=== PATIENT | male | born 1940 | race Caucasian/White ===

== ENCOUNTER 2018-07-17 13:56 | Inpatient (IN) ==
[2018-07-17] MEDS ORDERED: BENZTROPINE 2 MG/2 ML AMP IV PRN (15:15)
[2018-07-17] MEDS ORDERED: LOPERAMIDE 2 MG CAPSULE PO PRN ×2 (15:15)
[2018-07-17] MEDS ORDERED: guaiFENesin 200 MG/10 ML UDCUP PO PRN (15:15)
[2018-07-17] MEDS ORDERED: ONDANSETRON 4 MG/2 ML VIAL IV PRN (15:15)
[2018-07-17] MEDS ORDERED: chlorproMAZINE INJ 50 MG in SODIUM CHLORIDE 0.9% 100 ML IV PRN (15:15)
[2018-07-17] MEDS ORDERED: MYLANTA/LIDO VISC 2:1 300 ML BOTTLE SWISH/SPIT PRN (15:15)
[2018-07-17] MEDS ORDERED: ALUMINUM/MAGNES/SIMETH MAX STR 30 ML UDCUP PO PRN (15:15)
[2018-07-17] MEDS ORDERED: chlorproMAZINE 25 MG TABLET PO PRN (15:15)
[2018-07-17] MEDS ORDERED: MAGNESIUM HYDROXIDE SUSP 30 ML UDCUP PO PRN (15:15)
[2018-07-17] MEDS ORDERED: traMADol 50 MG TABLET PO PRN (15:15)
[2018-07-17] MEDS ORDERED: TEMAZEPAM 7.5 MG CAPSULE PO PRN (15:15)
[2018-07-17] MEDS ORDERED: ALPRAZolam 0.25 MG TABLET PO PRN (15:15)
[2018-07-17] MEDS ORDERED: PROMETHAZINE INJ 25 MG in SODIUM CHLORIDE 0.9% 50 ML IV PRN (15:15)
[2018-07-17] MEDS ORDERED: chlorproMAZINE INJ 25 MG in SODIUM CHLORIDE 0.9% 100 ML IV PRN (15:15)
[2018-07-17] MEDS ORDERED: ACETAMINOPHEN 325 MG TABLET PO PRN (15:15)
[2018-07-17] MEDS ORDERED: diphenhydrAMINE CAP 25 MG CAPSULE PO PRN (15:15)
[2018-07-17] MEDS ORDERED: MYLANTA/LIDO VISC 2:1 300 ML BOTTLE SWISH/SWAL PRN (15:15)
[2018-07-17] MEDS ORDERED: LACTULOSE 20 GM/30 ML UDCUP PO PRN (15:15)
[2018-07-17] MEDS ORDERED: LIDOCAINE 1%/EPI INJ 20 ML VIAL MISC INJ ONE (17:20)
[2018-07-17] MEDS: CLINDAMYCIN INJ 600 MG in PREMIX 1 EACH IV SCH (17:29)
[2018-07-17] MEDS: SODIUM CHLORIDE 0.45% 1,000 ML IV SCH (17:29)
[2018-07-17] MEDS: MUPIROCIN 2% OINT 22 GM TUBE TOP SCH (20:40)
[2018-07-18] MEDS: CLINDAMYCIN INJ 600 MG in PREMIX 1 EACH IV SCH ×2 (01:32→11:29)
[2018-07-18 04:58] LABS: Basophils % 0.1 % (0.0-0.8); Eosinophils # 0.1 10*3/uL (0.0-0.87); Eosinophils % 0.6 % (0.00-10.9); Hematocrit 26.4 VOL% (42.0-52.0); Hemoglobin 7.9 GM/DL (14.0-18.0); Immature Granulocytes % 1.5 %; Immature Granulocytes Absolute 0.12 #; Lymphocytes # 0.9 10*3/uL (1.4-4.0); Mean Corpuscular HGB Conc 29.9 GM/DL (32-36); Mean Corpuscular Hemoglobin 29 PG (27-34); Mean Corpuscular Volume 95.3 FL (87-102); Mean Platelet Volume 10.8 FL (9.6-12.0); Monocytes # 0.6 10*3/uL (0.11-0.8); Monocytes % 6.7 % (1.7-12.7); Neutrophils # 6.5 10*3/uL (1.4-7.4); Neutrophils % 80.1 % (38.7-73.9); Platelet Count 227 T/CUMM (130-400); Red Blood Count 2.77 MC/CUMM (3.8-5.5); Red Cell Distribution Width 16.6 % (9.3-17.3); White Blood Count 8.2 T/CUMM (4-12)
[2018-07-18 05:15] LABS: Albumin 1.8 G/DL (3.4-5.0); Bilirubin,Total 0.6 MG/DL (0.2-1.0); Osmolality,Calculated 285.8 MOS/KG (273-304); Potassium 4.6 MMOL/L (3.5-5.1); Total Protein 5.2 G/DL (6.4-8.3)
[2018-07-18 05:51] LABS: INR 3.9
[2018-07-18 06:07] LABS: PT Patient Result 39.2 SECS
[2018-07-18] MEDS ORDERED: INFLUENZA VIRUS VACCINE 0.5 ML SYRINGE IM ONE (07:01)
[2018-07-18] MEDS ORDERED: MORPHINE 4 MG/1 ML VIAL IV PRN (08:41)
[2018-07-18] MEDS ORDERED: predniSONE 5 MG TABLET PO SCH (09:00)
[2018-07-18] MEDS ORDERED: TAMSULOSIN 0.4 MG CAPSULE PO SCH (09:00)
[2018-07-18] MEDS ORDERED: BRIMONIDINE 0.15% RIGHT EYE SCH (09:00)
[2018-07-18] MEDS ORDERED: BRIMONIDINE TARTRATE RIGHT EYE SCH (09:00)
[2018-07-18] MEDS: ENOXAPARIN 40 MG/0.4 ML SYRINGE SUBCUT SCH (09:42)
[2018-07-18] MEDS: METOPROLOL TARTRATE 25 MG TABLET PO SCH ×2 (09:48→20:12)
[2018-07-18] MEDS: MUPIROCIN 2% OINT 22 GM TUBE TOP SCH ×2 (09:55→20:12)
[2018-07-18] MEDS: TAMSULOSIN 0.4 MG CAPSULE PO SCH ×2 (11:22→20:12)
[2018-07-18] MEDS: predniSONE 5 MG TABLET PO SCH ×2 (11:22→20:12)
[2018-07-18] MEDS: CLINDAMYCIN INJ 900 MG in PREMIX 1 EACH IV SCH ×2 (11:23→18:19)
[2018-07-18] MEDS: SODIUM CHLORIDE 0.45% 1,000 ML IV SCH (11:24)
[2018-07-18] MEDS ORDERED: ZINC OXIDE PASTE 113 GM TUBE TOP PRN (15:04)
[2018-07-18] MEDS ORDERED: SKIN HEALING OINT (AQUAPHOR) 50 GM TUBE TOP PRN (15:48)
[2018-07-18] MEDS ORDERED: METOPROLOL TARTRATE 50 MG TABLET PO SCH (21:00)
[2018-07-19] MEDS: CLINDAMYCIN INJ 900 MG in PREMIX 1 EACH IV SCH ×3 (02:33→18:04)
[2018-07-19 06:41] LABS: Basophils % 0.1 % (0.0-0.8); Eosinophils % 0.3 % (0.00-10.9); Hematocrit 26.6 VOL% (42.0-52.0); Hemoglobin 7.9 GM/DL (14.0-18.0); Immature Granulocytes % 1.4 %; Immature Granulocytes Absolute 0.11 #; Lymphocytes # 0.9 10*3/uL (1.4-4.0); Mean Corpuscular HGB Conc 29.7 GM/DL (32-36); Mean Corpuscular Hemoglobin 29 PG (27-34); Mean Platelet Volume 10.4 FL (9.6-12.0); Monocytes # 0.5 10*3/uL (0.11-0.8); Monocytes % 6.3 % (1.7-12.7); Neutrophils # 6.4 10*3/uL (1.4-7.4); Neutrophils % 80.9 % (38.7-73.9); Platelet Count 238 T/CUMM (130-400); Red Blood Count 2.77 MC/CUMM (3.8-5.5); Red Cell Distribution Width 16.5 % (9.3-17.3); White Blood Count 7.9 T/CUMM (4-12)
[2018-07-19 07:58] LABS: PT Patient Result 72.7 SECS
[2018-07-19 08:00] LABS: INR 7.4
[2018-07-19] MEDS: TAMSULOSIN 0.4 MG CAPSULE PO SCH ×2 (08:44→21:55)
[2018-07-19] MEDS: METOPROLOL TARTRATE 25 MG TABLET PO SCH ×2 (08:44→21:54)
[2018-07-19] MEDS: predniSONE 5 MG TABLET PO SCH ×2 (08:44→21:55)
[2018-07-19] MEDS: MUPIROCIN 2% OINT 22 GM TUBE TOP SCH ×2 (08:44→21:54)
[2018-07-19] MEDS: ENOXAPARIN 40 MG/0.4 ML SYRINGE SUBCUT SCH (08:44)
[2018-07-19] MEDS ORDERED: PHYTONADIONE 10 MG/1 ML AMP SUBCUT ONE (10:55)
[2018-07-19] MEDS: SODIUM CHLORIDE 0.45% 1,000 ML IV SCH (18:05)
[2018-07-20] MEDS: CLINDAMYCIN INJ 900 MG in PREMIX 1 EACH IV SCH ×3 (03:40→18:37)
[2018-07-20 06:07] LABS: Basophils % 0.3 % (0.0-0.8); Eosinophils # 0.1 10*3/uL (0.0-0.87); Eosinophils % 0.9 % (0.00-10.9); Hematocrit 27.1 VOL% (42.0-52.0); Hemoglobin 8.3 GM/DL (14.0-18.0); Immature Granulocytes % 2.8 %; Immature Granulocytes Absolute 0.21 #; Lymphocytes # 1.2 10*3/uL (1.4-4.0); Lymphocytes % 15.4 % (21.2-54.2); Mean Corpuscular HGB Conc 30.6 GM/DL (32-36); Mean Corpuscular Hemoglobin 30 PG (27-34); Mean Corpuscular Volume 97.1 FL (87-102); Mean Platelet Volume 10.6 FL (9.6-12.0); Monocytes # 0.5 10*3/uL (0.11-0.8); Monocytes % 6.2 % (1.7-12.7); Neutrophils # 5.6 10*3/uL (1.4-7.4); Neutrophils % 74.4 % (38.7-73.9); Platelet Count 257 T/CUMM (130-400); Red Blood Count 2.79 MC/CUMM (3.8-5.5); Red Cell Distribution Width 16.5 % (9.3-17.3); White Blood Count 7.5 T/CUMM (4-12)
[2018-07-20 06:14] LABS: INR 3.4
[2018-07-20 06:26] LABS: PT Patient Result 34.6 SECS
[2018-07-20] MEDS: ENOXAPARIN 40 MG/0.4 ML SYRINGE SUBCUT SCH (09:19)
[2018-07-20] MEDS: TAMSULOSIN 0.4 MG CAPSULE PO SCH ×2 (09:19→20:56)
[2018-07-20] MEDS: predniSONE 5 MG TABLET PO SCH ×2 (09:19→20:56)
[2018-07-20] MEDS: METOPROLOL TARTRATE 25 MG TABLET PO SCH ×2 (09:19→20:56)
[2018-07-20] MEDS: MUPIROCIN 2% OINT 22 GM TUBE TOP SCH ×2 (09:20→20:58)
[2018-07-20] MEDS ORDERED: WARFARIN 2 MG TABLET PO SCH (18:00)
[2018-07-21] MEDS: SODIUM CHLORIDE 0.45% 1,000 ML IV SCH ×2 (00:36→04:45)
[2018-07-21] MEDS: CLINDAMYCIN INJ 900 MG in PREMIX 1 EACH IV SCH ×2 (03:10→18:34)
[2018-07-21 05:23] LABS: Basophils % 0.3 % (0.0-0.8); Eosinophils # 0.1 10*3/uL (0.0-0.87); Eosinophils % 1.1 % (0.00-10.9); Hematocrit 27.9 VOL% (42.0-52.0); Hemoglobin 8.3 GM/DL (14.0-18.0); Immature Granulocytes % 2.9 %; Immature Granulocytes Absolute 0.21 #; Lymphocytes # 1.4 10*3/uL (1.4-4.0); Lymphocytes % 18.8 % (21.2-54.2); Mean Corpuscular HGB Conc 29.7 GM/DL (32-36); Mean Corpuscular Hemoglobin 29 PG (27-34); Mean Corpuscular Volume 98.6 FL (87-102); Mean Platelet Volume 10.5 FL (9.6-12.0); Monocytes # 0.5 10*3/uL (0.11-0.8); Monocytes % 6.8 % (1.7-12.7); Neutrophils # 5.2 10*3/uL (1.4-7.4); Neutrophils % 70.1 % (38.7-73.9); Platelet Count 274 T/CUMM (130-400); Red Blood Count 2.83 MC/CUMM (3.8-5.5); Red Cell Distribution Width 16.7 % (9.3-17.3); White Blood Count 7.4 T/CUMM (4-12)
[2018-07-21 05:34] LABS: INR 1.5; PT Patient Result 15.7 SECS
[2018-07-21] MEDS: predniSONE 5 MG TABLET PO SCH ×2 (09:33→20:53)
[2018-07-21] MEDS: TAMSULOSIN 0.4 MG CAPSULE PO SCH ×2 (09:34→20:53)
[2018-07-21] MEDS: METOPROLOL TARTRATE 25 MG TABLET PO SCH ×2 (09:34→20:53)
[2018-07-21] MEDS: MUPIROCIN 2% OINT 22 GM TUBE TOP SCH ×2 (09:34→20:54)
[2018-07-21] MEDS: WARFARIN 3 MG TABLET PO SCH (18:33)
[2018-07-21] MEDS: CLINDAMYCIN 150 MG CAPSULE PO SCH (22:03)
[2018-07-22] MEDS: METOPROLOL TARTRATE 25 MG TABLET PO SCH ×2 (09:19→20:27)
[2018-07-22] MEDS: TAMSULOSIN 0.4 MG CAPSULE PO SCH ×2 (09:20→20:27)
[2018-07-22] MEDS: MUPIROCIN 2% OINT 22 GM TUBE TOP SCH ×2 (09:20→20:29)
[2018-07-22] MEDS: predniSONE 5 MG TABLET PO SCH ×2 (09:20→20:27)
[2018-07-22] MEDS: CLINDAMYCIN 150 MG CAPSULE PO SCH ×2 (09:29→20:27)
[2018-07-22] MEDS: WARFARIN 3 MG TABLET PO SCH (18:42)
[2018-07-23 05:06] LABS: INR 1.1; PT Patient Result 11.3 SECS; Partial Thromboplastin Time 28.5 SECS (0-40)
[2018-07-23] MEDS: predniSONE 5 MG TABLET PO SCH (09:16)
[2018-07-23] MEDS: METOPROLOL TARTRATE 25 MG TABLET PO SCH (09:16)
[2018-07-23] MEDS: TAMSULOSIN 0.4 MG CAPSULE PO SCH (09:17)
[2018-07-23] MEDS: CLINDAMYCIN 150 MG CAPSULE PO SCH (09:17)
[2018-07-23] MEDS: MUPIROCIN 2% OINT 22 GM TUBE TOP SCH (09:19)
[2018-07-23 10:05] VITALS: BP 131/75
[2018-07-23] MEDS ORDERED: INFLUENZA VIRUS VACCINE 0.5 ML SYRINGE IM ONE (10:50)
== END 2018-07-23 12:47 | disposition swing bed (61) | DRG 571 ==
LOC: N.4E 14:26
PROVIDERS: ADMIT Specialist; ATTEND Specialist

== ENCOUNTER 2019-01-22 07:32 | Inpatient (IN) ==
[2019-01-22 08:53] LABS: Apearance,Urine CLOUDY (Clear); Bilirubin,Urine Negative (Negative); Blood, Urine Small mg/dL (Negative); Glucose,Urine (UA) Negative (Negative); Ketones,Urine Negative (Negative); Mucus,Urine Occasional /LPF (Occasional); Nitrite,Urine Negative (Negative); Protein,Urine 100 MG/DL; RBC,Urine 53 /HPF (0-4); Urine Color Amber (Yellow); Urine Specific Gravity 1.013 (1.001-1.035); Urine Urobilinogen < 2.0 EU/DL (0.2-1.0); WBC,Urine 4569 /HPF (0-6)
[2019-01-22] MEDS ORDERED: SODIUM CHLORIDE 0.9% 500 ML IV STA (09:06)
[2019-01-22 09:19] LABS: Basophils % 0.1 % (0.0-0.8); Hematocrit 27.6 VOL% (42.0-52.0); Hemoglobin 8.6 GM/DL (14.0-18.0); Immature Granulocytes Absolute 0.25 #; Lymphocytes # 0.5 10*3/uL (1.4-4.0); Lymphocytes % 5.8 % (21.2-54.2); Mean Corpuscular HGB Conc 31.2 GM/DL (32-36); Mean Corpuscular Volume 91.4 FL (87-102); Monocytes % 6.4 % (1.7-12.7); NRBC # 0.03 10*3/uL; Neutrophils % 84.7 % (38.7-73.9); Platelet Count 215 T/CUMM (130-400); Red Blood Count 3.02 MC/CUMM (3.8-5.5); Red Cell Distribution Width 17.1 % (9.3-17.3); White Blood Count 8.3 T/CUMM (4-12)
[2019-01-22 09:27] LABS: Bilirubin,Total 0.7 MG/DL (0.2-1.0); Calcium 9.4 MG/DL (8.5-10.1); Osmolality,Calculated 300.2 MOS/KG (273-304); Total Protein 6.3 G/DL (6.4-8.3)
[2019-01-22 09:39] LABS: Anisocytosis 1+; Platelet Estimate Normal; Poikilocytosis 1+
[2019-01-22 09:40] LABS: Ovalocytes Few
[2019-01-22] MEDS ORDERED: LEVOFLOXACIN INJ 500 MG in PREMIX 1 EACH IV STA (11:00)
[2019-01-22] MEDS ORDERED: ONDANSETRON 4 MG/2 ML VIAL IV PRN (11:23)
[2019-01-22] MEDS ORDERED: PROMETHAZINE 25 MG/1 ML VIAL IM PRN (11:23)
[2019-01-22] MEDS ORDERED: POTASSIUM CHLORIDE 20 MEQ TABLET PO STA (11:27)
[2019-01-22] MEDS ORDERED: GLUCAGON 1 MG VIAL IM PRN (11:28)
[2019-01-22] MEDS ORDERED: DEXTROSE 50% 25 GM/50 ML VIAL IV PRN (11:28)
[2019-01-22] MEDS: LACTULOSE 20 GM/30 ML UDCUP PO SCH ×3 (12:05→21:59)
[2019-01-22] MEDS: INSULIN LISPRO 100 UNIT/ML SUBCUT SCH ×3 (12:06→22:07)
[2019-01-22] MEDS: PANTOPRAZOLE 40 MG TABLET PO SCH (12:06)
[2019-01-22 16:08] LABS: INR 3.8; PT Patient Result 41.1 SECS
[2019-01-22] MEDS: cefTRIAXone 1,000 MG in SYRINGE 1 EACH IV SCH (17:30)
[2019-01-22] MEDS: SODIUM CHLORIDE 0.9% 1,000 ML IV SCH (17:43)
[2019-01-22] MEDS: SODIUM BICARBONATE 650 MG TABLET PO SCH (21:59)
[2019-01-23] MEDS: LACTULOSE 20 GM/30 ML UDCUP PO SCH ×6 (00:19→21:44)
[2019-01-23 04:34] LABS: Hematocrit 25.8 VOL% (42.0-52.0); Hemoglobin 8.1 GM/DL (14.0-18.0); Immature Granulocytes % 2.9 %; Immature Granulocytes Absolute 0.19 #; Lymphocytes # 0.7 10*3/uL (1.4-4.0); Lymphocytes % 11.2 % (21.2-54.2); Mean Corpuscular HGB Conc 31.4 GM/DL (32-36); Mean Corpuscular Volume 91.8 FL (87-102); Mean Platelet Volume 11.3 FL (9.6-12.0); Monocytes % 7.3 % (1.7-12.7); NRBC # 0.03 10*3/uL; Neutrophils % 78.6 % (38.7-73.9); Platelet Count 204 T/CUMM (130-400); Red Blood Count 2.81 MC/CUMM (3.8-5.5); Red Cell Distribution Width 17.3 % (9.3-17.3); White Blood Count 6.6 T/CUMM (4-12)
[2019-01-23 05:31] LABS: Albumin 1.7 G/DL (3.4-5.0); Calcium 9.3 MG/DL (8.5-10.1); Osmolality,Calculated 296.5 MOS/KG (273-304); Risk Ratio 4.03; Thyroid Stimulating Hormone 0.623 uIU/ml (0.358-3.74); Total Protein 5.9 G/DL (6.4-8.3); VLDL CHOLESTEROL 32.8 MG/DL
[2019-01-23] MEDS: INSULIN LISPRO 100 UNIT/ML SUBCUT SCH ×4 (07:15→21:44)
[2019-01-23] MEDS: cefTRIAXone 1,000 MG in SYRINGE 1 EACH IV SCH (09:46)
[2019-01-23] MEDS: PANTOPRAZOLE 40 MG TABLET PO SCH (09:49)
[2019-01-23] MEDS: SODIUM BICARBONATE 650 MG TABLET PO SCH ×3 (09:50→21:44)
[2019-01-23 14:03] LABS: Folate 14.5 NG/ML (5.4-24.0)
[2019-01-23] MEDS: SODIUM CHLORIDE 0.9% 1,000 ML IV SCH (14:56)
[2019-01-23] MEDS: ALBUMIN 25% 12.5 GM in PREMIX 1 EACH IV SCH (14:59)
[2019-01-23] MEDS ORDERED: POTASSIUM CHLORIDE 20 MEQ TABLET PO ONE (15:00)
[2019-01-24] MEDS: LACTULOSE 20 GM/30 ML UDCUP PO SCH ×6 (01:26→21:20)
[2019-01-24] MEDS: ALBUMIN 25% 12.5 GM in PREMIX 1 EACH IV SCH ×2 (02:24→15:29)
[2019-01-24 05:11] LABS: Eosinophils % 0.4 % (0.00-10.9); Hematocrit 26.3 VOL% (42.0-52.0); Hemoglobin 8.2 GM/DL (14.0-18.0); Immature Granulocytes % 2.6 %; Lymphocytes # 0.4 10*3/uL (1.4-4.0); Mean Corpuscular HGB Conc 31.2 GM/DL (32-36); Mean Platelet Volume 10.6 FL (9.6-12.0); Monocytes % 4.6 % (1.7-12.7); NRBC # 0.04 10*3/uL; Neutrophils % 87.4 % (38.7-73.9); Platelet Count 237 T/CUMM (130-400); Red Blood Count 2.86 MC/CUMM (3.8-5.5); Red Cell Distribution Width 17.4 % (9.3-17.3); White Blood Count 7.6 T/CUMM (4-12)
[2019-01-24 05:18] LABS: INR 4.7
[2019-01-24 05:19] LABS: PT Patient Result 50.1 SECS
[2019-01-24 05:25] LABS: Albumin 2.1 G/DL (3.4-5.0); Bilirubin,Total 1.3 MG/DL (0.2-1.0); Calcium 9.9 MG/DL (8.5-10.1); Osmolality,Calculated 300.4 MOS/KG (273-304)
[2019-01-24 05:38] LABS: Acanthocytes Few; Anisocytosis 1+; Band Neutrophils 18 % (0-10); Lymphocytes 4 % (20-55); Metamyelocytes 1 %; Ovalocytes 1+; Platelet Estimate Normal; Segmented Neutrophils 74 % (50-85); Total Cells Counted 100
[2019-01-24 05:39] LABS: Macrocytosis 1+
[2019-01-24] MEDS ORDERED: POTASSIUM CHLORIDE 20 MEQ TABLET PO ONE (09:00)
[2019-01-24] MEDS: INSULIN LISPRO 100 UNIT/ML SUBCUT SCH ×4 (09:07→21:19)
[2019-01-24] MEDS: cefTRIAXone 1,000 MG in SYRINGE 1 EACH IV SCH (09:08)
[2019-01-24] MEDS: SODIUM BICARBONATE 650 MG TABLET PO SCH ×3 (09:08→21:19)
[2019-01-24] MEDS: PANTOPRAZOLE 40 MG TABLET PO SCH (09:08)
[2019-01-24] MEDS ORDERED: PHYTONADIONE 10 MG/1 ML AMP PO ONE (10:00)
[2019-01-24] MEDS ORDERED: PHYTONADIONE 5 MG/5 ML ORAL.SYR PO ONE (10:00)
[2019-01-24] MEDS: AZITHROMYCIN INJ 500 MG in SODIUM CHLORIDE 0.9% 250 ML IV SCH (12:55)
[2019-01-24] MEDS: BACITRACIN OINT 28.35 GM TUBE TOP SCH (12:55)
[2019-01-24] MEDS: DESITIN 4OZ/NYSTATIN 15 GRAM MIXTURE PASTE TOP SCH ×2 (12:55→21:20)
[2019-01-24] MEDS: ALBUTEROL/IPRATROPIUM 3 ML NEB RESP TX SCH ×2 (13:00→19:22)
[2019-01-25] MEDS: ALBUTEROL/IPRATROPIUM 3 ML NEB RESP TX SCH ×4 (00:57→19:44)
[2019-01-25] MEDS: LACTULOSE 20 GM/30 ML UDCUP PO SCH ×3 (02:07→09:09)
[2019-01-25] MEDS: ALBUMIN 25% 12.5 GM in PREMIX 1 EACH IV SCH (02:15)
[2019-01-25 05:32] LABS: Basophils % 0.1 % (0.0-0.8); Eosinophils # 0.1 10*3/uL (0.0-0.87); Hematocrit 25.4 VOL% (42.0-52.0); Hemoglobin 7.7 GM/DL (14.0-18.0); Immature Granulocytes % 4.2 %; Immature Granulocytes Absolute 0.29 #; Lymphocytes # 0.3 10*3/uL (1.4-4.0); Lymphocytes % 4.8 % (21.2-54.2); Mean Corpuscular HGB Conc 30.3 GM/DL (32-36); Mean Corpuscular Volume 93.4 FL (87-102); Mean Platelet Volume 10.4 FL (9.6-12.0); Monocytes % 4.5 % (1.7-12.7); NRBC # 0.03 10*3/uL; Neutrophils % 85.4 % (38.7-73.9); Platelet Count 225 T/CUMM (130-400); Red Blood Count 2.72 MC/CUMM (3.8-5.5); Red Cell Distribution Width 17.8 % (9.3-17.3); White Blood Count 6.9 T/CUMM (4-12)
[2019-01-25 05:54] LABS: Elliptocytes Few; Eosinophils 1 % (0-10); Lymphocytes 1 % (20-55); Platelet Estimate Normal; Polychromasia Few; Segmented Neutrophils 92 % (50-85); Total Cells Counted 100
[2019-01-25 06:02] LABS: Albumin 1.9 G/DL (3.4-5.0); Bilirubin,Total 1.1 MG/DL (0.2-1.0); Calcium 9.4 MG/DL (8.5-10.1); Osmolality,Calculated 303.2 MOS/KG (273-304); Total Protein 5.1 G/DL (6.4-8.3)
[2019-01-25] MEDS ORDERED: POTASSIUM CHLORIDE 20 MEQ TABLET PO ONE (07:05)
[2019-01-25 07:33] LABS: PT Patient Result 78.4 SECS
[2019-01-25 07:34] LABS: INR 7.3
[2019-01-25] MEDS ORDERED: PHYTONADIONE 10 MG/1 ML AMP SUBCUT ONE (07:43)
[2019-01-25] MEDS: DESITIN 4OZ/NYSTATIN 15 GRAM MIXTURE PASTE TOP SCH ×2 (09:07→23:01)
[2019-01-25] MEDS: BACITRACIN OINT 28.35 GM TUBE TOP SCH (09:07)
[2019-01-25] MEDS: PANTOPRAZOLE 40 MG TABLET PO SCH (09:08)
[2019-01-25] MEDS: SODIUM BICARBONATE 650 MG TABLET PO SCH (09:08)
[2019-01-25] MEDS: cefTRIAXone 1,000 MG in SYRINGE 1 EACH IV SCH (09:08)
[2019-01-25] MEDS: AZITHROMYCIN INJ 500 MG in SODIUM CHLORIDE 0.9% 250 ML IV SCH (09:08)
[2019-01-25] MEDS: INSULIN LISPRO 100 UNIT/ML SUBCUT SCH (09:09)
[2019-01-25] MEDS ORDERED: LORazepam 2 MG/1 ML VIAL IV PRN (10:31)
[2019-01-25] MEDS ORDERED: fentaNYL 50 MCG/HR PATCH TRANSDERM SCH (11:00)
[2019-01-25] MEDS: MORPHINE 4 MG/1 ML VIAL IV PRN (23:09)
[2019-01-26] MEDS: ALBUTEROL/IPRATROPIUM 3 ML NEB RESP TX SCH ×4 (01:11→19:07)
[2019-01-26] MEDS: DESITIN 4OZ/NYSTATIN 15 GRAM MIXTURE PASTE TOP SCH ×2 (08:35→22:25)
[2019-01-26] MEDS: BACITRACIN OINT 28.35 GM TUBE TOP SCH (08:35)
[2019-01-26] MEDS: MORPHINE 4 MG/1 ML VIAL IV PRN (16:22)
[2019-01-27] MEDS: ALBUTEROL/IPRATROPIUM 3 ML NEB RESP TX SCH ×3 (00:33→13:29)
[2019-01-27] MEDS: MORPHINE 4 MG/1 ML VIAL IV PRN ×3 (01:42→10:31)
[2019-01-27] MEDS: BACITRACIN OINT 28.35 GM TUBE TOP SCH (10:31)
[2019-01-27] MEDS: DESITIN 4OZ/NYSTATIN 15 GRAM MIXTURE PASTE TOP SCH (10:31)
[2019-01-27 11:37] VITALS: BP 85/38
== END 2019-01-27 16:03 | disposition expired | DRG 682 ==
LOC: EDUNIT# → EDBD → N.ED 07:32 → SUATTDRO 11:23 → N.EDINP 11:23 → N.2E 14:50
PROVIDERS: ADMIT Internal Medicine; ATTEND Family Medicine